=== PATIENT | female | born 1960 | race Caucasian/White ===

== ENCOUNTER → 2021-03-31 | Outpatient (CLI) | payer OTHER | LOC: HEART CORB 03-14 13:00 | DX: R00.1 Bradycardia, unspecified (principal); R07.9 Chest pain, unspecified; R55 Syncope and collapse; I08.1 Rheumatic disorders of both mitral and tricuspid valves; I27.20 Pulmonary hypertension, unspecified | CPT/HCPCS: 93306 ==